=== PATIENT | male | born 1955 | race African-American/Black ===

== ENCOUNTER 2021-09-18 11:07 | Day surgery (SDC) | payer MEDICARE ==
[2021-09-18] MEDS ORDERED: Ringers Lactate 1,000 ML IV ONE (11:27)
[2021-09-18] MEDS ORDERED: PHENYLEPHRINE 2.5% OPTH 2 ML ONE (11:28)
[2021-09-18] MEDS ORDERED: CYCLOPENTOLATE 1% OPTH 2 ML ONE (11:28)
[2021-09-18] MEDS ORDERED: LIDOCAINE HCL/PF 3.5% OPTH GEL ONE (11:29)
[2021-09-18] MEDS ORDERED: MOXIFLOXACIN HCL 0.5% 3ML OPTH OPTH ONE (12:06)
[2021-09-18] MEDS ORDERED: TRYPAN BLUE 0.5 ML SYR OPTH ONE ×2 (12:08→12:09)
[2021-09-18] MEDS ORDERED: DUOVISC 1 KIT OPTH ONE ×2 (12:09→12:20)
[2021-09-18] MEDS ORDERED: BALANCED SALT IRRIG PLAIN 500 ML IRR ONE (12:10)
[2021-09-18] MEDS ORDERED: BSS OPTHALMIC SOL 15 ML OPTH ONE (12:10)
[2021-09-18] MEDS ORDERED: POVIDONE-IODINE 5% EYE DROPS ONE (12:10)
[2021-09-18] MEDS ORDERED: EPINEPHRINE/PF 1 MG/ML AMP ONE (12:10)
[2021-09-18] MEDS ORDERED: FENTANYL CITR 100 MCG/2 ML ONE (12:18)
[2021-09-18] MEDS ORDERED: MIDAZOLAM HCL 2 MG/2 ML INJ ONE (12:18)
[2021-09-18] MEDS ORDERED: ONDANSETRON 4 MG/2 ML VIAL ONE (12:18)
[2021-09-18] MEDS ORDERED: TRIAMCINOLONE ACETONIDE 40 MG/ML IO ONE (12:52)
[2021-09-18] MEDS ORDERED: BUPIVACAINE 0.25% PF 10 ML VIAL ONE (13:02)
[2021-09-18] MEDS ORDERED: LIDOCAINE 1% MPF 2 ML AMPULE ONE ×2 (13:09→13:39)
[2021-09-18] MEDS ORDERED: LIDOCAINE 1% MPF 2 ML AMPULE IJ ONE ×2 (13:09)
[2021-09-18 14:35] VITALS: BP 134/80; TEMP 96.8; O2SAT 100
--- NOTE | 2021-09-19 01:21 | OP ---
Date of Procedure: 09/18/2021 Surgeon: Asiya Stubbs MD Anesthesiologist: Emmanuel Louis CRNA and Bal Lawson MD. Preoperative Diagnosis: Mature cataract, right eye. Operation Performed: Phacoemulsification with intraocular lens implant complex with the use of trypan blue, right eye. Anesthesia: Topical. Complications: None. Description Of Procedure: Akten 3.5% gel was placed in the eye in day surgery. In the operating room the patient was prepped and draped in the usual sterile fashion for ophthalmic surgery. A lid speculum was placed in the right eye. Two paracentesis sites were made superiorly and inferiorly in the limbal cornea. Lidocaine 1% preservative free was placed in the anterior chamber this was followed by Trypan blue. The Trypan blue was irrigated out of the eye with BSS and Viscoat was placed in the anterior chamber. A keratome was used to enter the anterior chamber. A 360 degree capsulotomy was performed with utrata forceps. The lens was hydrodissected with BSS and rotated freely. The lens was removed with a stop and chop technique. A 33.65 CDE was used to remove the lens. Residual cortex was removed with the irrigation and aspiration. Provisc was placed in the capsular bag. A DCB00 +18.0 lens was placed in the capsular bag without complications. Irrigation and aspiration were used to remove residual viscoelastic. The paracentesis sites were hydrated with BSS. The wound and paracentesis sites were inspected and found to be watertight. Vigamox 0.07 cc was placed intracamerally at the end of the procedure. The eye was patched with a clear plastic shield. The patient was returned to day surgery in good condition. Comments: The lens was very dense and slightly loose during surgery. A few cortical remnants were seen posterior to the capsule at the end of the procedure. One 10-0 nylon suture was put in the wound. Discharge Instructions: The patient is discharged to home in good condition. The patient is to follow up with Dr. Stubbs in the morning thank you. AMELIA/JENNIFER Voice ID: [id number] Report ID: [id number] MONY
== END 2021-09-18 14:41 | disposition home or self-care (01) ==
LOC: OR 11:07
PROVIDERS: ATTEND Ophthalmology Retina Specialist
PROC: 08RJ3JZ Replacement of Right Lens with Synthetic Substitute, Percutaneous Approach (ICD-10-PCS; principal; 2021-09-18 13:30)
DX: H25.811 Combined forms of age-related cataract, right eye (principal); H25.11 Age-related nuclear cataract, right eye; H25.011 Cortical age-related cataract, right eye; H25.041 Posterior subcapsular polar age-related cataract, right eye; Z20.822 Contact with and (suspected) exposure to COVID-19
CPT/HCPCS: 66984; U0003; J0171; J2250; J3010; J7120; J2405

== ENCOUNTER 2021-11-13 11:49 | Day surgery (SDC) | payer MEDICARE ==
[2021-11-13] MEDS ORDERED: Ringers Lactate 1,000 ML IV ONE (12:08)
[2021-11-13 12:23] VITALS: O2SAT 100
[2021-11-13] MEDS: CYCLOPENTOLATE 1% OPTH 2 ML ONE ×3 (12:50→13:00)
[2021-11-13] MEDS: PHENYLEPHRINE 2.5% OPTH 2 ML ONE ×3 (12:50→13:03)
[2021-11-13] MEDS ORDERED: LIDOCAINE HCL/PF 3.5% OPTH GEL ONE (12:50)
[2021-11-13] MEDS ORDERED: BALANCED SALT IRRIG PLAIN 500 ML IRR ONE (13:39)
[2021-11-13] MEDS ORDERED: EPINEPHRINE/PF 1 MG/ML AMP ONE (13:39)
[2021-11-13] MEDS ORDERED: BSS OPTHALMIC SOL 15 ML OPTH ONE (13:39)
[2021-11-13] MEDS ORDERED: POVIDONE-IODINE 5% EYE DROPS ONE (13:40)
[2021-11-13] MEDS ORDERED: DUOVISC 1 KIT OPTH ONE (13:40)
[2021-11-13] MEDS ORDERED: LIDOCAINE 1% MPF 2 ML AMPULE ONE (13:41)
[2021-11-13] MEDS ORDERED: TRYPAN BLUE 0.5 ML SYR OPTH ONE (13:41)
[2021-11-13] MEDS ORDERED: MIDAZOLAM HCL 2 MG/2 ML INJ ONE (13:54)
[2021-11-13] MEDS ORDERED: MOXIFLOXACIN HCL 10 DROPS/ML **OR USE OPTH ONE (13:58)
[2021-11-13] MEDS ORDERED: TETRACAINE HCL 0.5% 4ML OPTH ONE (14:01)
[2021-11-13] MEDS ORDERED: FENTANYL CITR 100 MCG/2 ML ONE (14:07)
[2021-11-13 14:56] VITALS: BP 137/78; TEMP 96.6
--- NOTE | 2021-11-14 01:29 | OP ---
Date of Procedure: 11/13/2021 Surgeon: Asiya Stubbs MD Anesthesiologist: Thad Franco CRNA, and Poli Mcclendon MD, anesthesia for cataract surgery. Preoperative Diagnosis: Combined form of cataract, left eye. Operation Performed: Phacoemulsification with intraocular lens implant, left eye. Anesthesia: Topical anesthesia. Complications: None. Description Of Procedure: In the operating room the patient was prepped and draped in the usual sterile fashion for ophthalmic surgery. A lid speculum was placed in the left eye. Two paracentesis sites were made superiorly and inferiorly in the limbal cornea. Lidocaine 1% preservative free then Viscoat were placed in the anterior chamber. A keratome was used to enter the anterior chamber. A 360 degree capsulotomy was performed with a utrata forceps. The lens was hydrodissected with BSS and rotated freely. The lens was removed with a chop technique. 14.04 phaco CDE was used to remove the lens. Residual cortex was removed with the irrigation and aspiration. Provisc was placed in the capsular bag. A DCB00 +17.5 lens was placed in the capsular bag without complications. Irrigation and aspiration was used to remove residual viscoelastic. The paracentesis sites were hydrated with BSS. The wound and paracentesis sites were inspected and found to be watertight. Vigamox 0.07 cc was placed intracamerally at the end of the procedure. The eye was irrigated with balanced salt solution. The eye was patched with a clear plastic shield. The patient was returned to day surgery in good condition. Comments: Extra Viscoat was used. Discharge Instructions: Mr. Ortiz was discharged to home in good condition. He is to follow up with Dr. Stubbs in the morning. AMELIA/JENNIFER Voice ID: [id number] Report ID: [id number] MONY
== END 2021-11-13 14:54 | disposition home or self-care (01) ==
LOC: OR 11:49
PROVIDERS: ATTEND Ophthalmology Retina Specialist
PROC: 08RK3JZ Replacement of Left Lens with Synthetic Substitute, Percutaneous Approach (ICD-10-PCS; principal; 2021-11-13 13:30)
DX: H25.812 Combined forms of age-related cataract, left eye (principal); Z20.822 Contact with and (suspected) exposure to COVID-19
CPT/HCPCS: 66984; U0003; J0171; J2250; J3010; J7120; V2632